=== PATIENT | male | born 1940 | race Caucasian/White ===

== ENCOUNTER 2021-10-13 06:48 | Inpatient (IN) ==
[2021-10-08 12:38] LABS: Basophils % 0.5 % (0.0-0.8); Eosinophils # 0.2 10*3/uL (0.0-0.87); Eosinophils % 2.5 % (0.00-10.9); Hematocrit 39.4 VOL% (42.0-52.0); Immature Granulocytes % 0.7 %; Immature Granulocytes Absolute 0.05 #; Lymphocytes # 1.7 10*3/uL (1.4-4.0); Lymphocytes % 23.3 % (21.2-54.2); Mean Corpuscular Volume 84.7 FL (87-102); Mean Platelet Volume 11.2 FL (9.6-12.0); Monocytes # 0.6 10*3/uL (0.11-0.8); Monocytes % 8.3 % (1.7-12.7); Neutrophils % 64.7 % (38.7-73.9); Platelet Count 168 T/CUMM (130-400); Red Blood Count 4.65 MC/CUMM (3.8-5.5); Red Cell Distribution Width 13.4 % (9.3-17.3); White Blood Count 7.5 T/CUMM (4-12)
[2021-10-08 12:47] LABS: PT Patient Result 10.6 SECS (10.5-12.0)
[2021-10-08 12:52] LABS: Albumin 3.8 G/DL (3.4-5.0); Bilirubin,Total 0.8 MG/DL (0.20-1.00); Calcium 9.2 MG/DL (8.5-10.1); Osmolality,Calculated 282.1 MOS/KG (273-304); Potassium 3.9 MMOL/L (3.5-5.1); Total Protein 6.5 G/DL (6.4-8.2)
[2021-10-13] MEDS ORDERED: HEPARIN/NACL 0.9% 2 UNITS/ML 1,000 UNIT/500 ML BAG IV ONE (08:30)
[2021-10-13] MEDS ORDERED: PHENYLEPHRINE DRIP 20 MG/250 ML PREMIX IV ONE (08:31)
[2021-10-13] MEDS ORDERED: NITROGLYCERIN DRIP 0 MG/0 ML BOTTLE IV ONE (08:31)
[2021-10-13] MEDS ORDERED: LIDOCAINE 2% 5 ML VIAL ONE (08:33)
[2021-10-13] MEDS ORDERED: propofoL 200 MG/20 ML VIAL IV ONE (08:33)
[2021-10-13] MEDS ORDERED: SEVOFLURANE 1 UNIT/15 MINUTE INH ONE ×5 (08:33→12:05)
[2021-10-13] MEDS ORDERED: fentaNYL 100 MCG/2 ML VIAL ONE ×2 (08:34→10:14)
[2021-10-13] MEDS ORDERED: HEPARIN 5,000 UNIT/1 ML VIAL ONE (08:54)
[2021-10-13] MEDS ORDERED: HEPARIN 10,000 UNIT/10 ML VIAL ONE (09:30)
[2021-10-13] MEDS ORDERED: PROTAMINE SULFATE 50 MG/5 ML VIAL IV ONE (09:30)
[2021-10-13] MEDS ORDERED: ACETAMINOPHEN INJ 1,000 MG/100 ML VIAL IV ONE (09:30)
[2021-10-13] MEDS ORDERED: GLYCOPYRROLATE 0.4 MG/2 ML VIAL ONE (10:41)
[2021-10-13] MEDS ORDERED: NITROPRUSSIDE 100 MG in DEXTROSE 5% 250 ML IV PRN (11:47)
[2021-10-13] MEDS ORDERED: PHENYLEPHRINE DRIP 40 MG/250 ML PREMIX IV PRN (11:47)
[2021-10-13] MEDS ORDERED: oxyCODONE/ACETAMINOPHEN 5-325 MG TABLET PO PRN (11:47)
[2021-10-13] MEDS ORDERED: HYDROmorphone 1 MG/1 ML SYRINGE IV PRN ×2 (11:47)
[2021-10-13] MEDS ORDERED: GLUCAGON 1 MG VIAL IM PRN (11:47)
[2021-10-13] MEDS ORDERED: PROMETHAZINE 25 MG/1 ML VIAL IM PRN (11:47)
[2021-10-13] MEDS ORDERED: NALOXONE 0.4 MG/ML VIAL IV PRN (11:47)
[2021-10-13] MEDS ORDERED: DEXTROSE 10% 250 ML BAG IV PRN (12:15)
[2021-10-13] MEDS ORDERED: NITROPRUSSIDE 50 MG/2 ML VIAL ONE (13:02)
[2021-10-13] MEDS: LACTATED RINGERS 1,000 ML IV SCH ×2 (14:00→21:18)
[2021-10-13] MEDS: ONDANSETRON 4 MG/2 ML VIAL IV PRN (14:06)
[2021-10-13] MEDS: oxyCODONE/ACETAMINOPHEN 5-325 MG TABLET PO PRN (15:33)
[2021-10-13] MEDS: ALUMINUM/MAGNES/SIMETH MAX STR 30 ML UDCUP PO PRN ×2 (16:54→21:17)
[2021-10-13] MEDS: SULINDAC 200 MG PO SCH (20:00)
[2021-10-13] MEDS: GABAPENTIN 100 MG CAPSULE PO SCH (20:13)
[2021-10-14] MEDS: oxyCODONE/ACETAMINOPHEN 5-325 MG TABLET PO PRN (00:14)
[2021-10-14] MEDS: ALUMINUM/MAGNES/SIMETH MAX STR 30 ML UDCUP PO PRN ×2 (01:34→20:21)
[2021-10-14] MEDS: CLOPIDOGREL 75 MG TABLET PO SCH (08:37)
[2021-10-14] MEDS: LOSARTAN 50 MG TABLET PO SCH (08:37)
[2021-10-14] MEDS: GABAPENTIN 100 MG CAPSULE PO SCH ×2 (08:37→20:21)
[2021-10-14] MEDS: ASPIRIN EC 81 MG TABLET PO SCH (08:37)
[2021-10-14] MEDS: SIMVASTATIN 20 MG TABLET PO SCH (08:38)
[2021-10-14] MEDS ORDERED: LIDOCAINE 2% TOP JELLY 20 ML VIAL INTRAURETH ONE (09:21)
[2021-10-14] MEDS: SULINDAC 200 MG PO SCH ×2 (10:48→20:33)
[2021-10-14] MEDS: TAMSULOSIN 0.4 MG CAPSULE PO SCH ×2 (11:10→20:21)
[2021-10-14] MEDS: ONDANSETRON 4 MG/2 ML VIAL IV PRN (12:49)
[2021-10-14] MEDS ORDERED: cloNIDine 0.1 MG TABLET PO PRN (13:15)
[2021-10-15] MEDS: GABAPENTIN 100 MG CAPSULE PO SCH (08:20)
[2021-10-15] MEDS: ASPIRIN EC 81 MG TABLET PO SCH (08:20)
[2021-10-15] MEDS: CLOPIDOGREL 75 MG TABLET PO SCH (08:20)
[2021-10-15] MEDS: TAMSULOSIN 0.4 MG CAPSULE PO SCH (08:20)
[2021-10-15] MEDS: SIMVASTATIN 20 MG TABLET PO SCH (08:20)
[2021-10-15] MEDS: LOSARTAN 50 MG TABLET PO SCH (08:21)
[2021-10-15 08:58] VITALS: BP 130/64
[2021-10-15] MEDS: ALUMINUM/MAGNES/SIMETH MAX STR 30 ML UDCUP PO PRN (09:03)
[2021-10-15] MEDS: SULINDAC 200 MG PO SCH (09:13)
== END 2021-10-15 12:00 | disposition home or self-care (01) | DRG 38 ==
LOC: N.SDSINP 06:48 → N.ICU 12:53
PROVIDERS: ADMIT Surgery; ATTEND Surgery